=== PATIENT | female | born 1970 | race Caucasian/White ===

== ENCOUNTER 2024-12-27 00:22 | Emergency (ER) | payer MEDICARE ==
[~2024-12-27] VITALS: Ht 165.1 cm; Wt 86.0 kg
[2024-12-27 00:34] VITALS: TEMP 96.8
[2024-12-27 03:45] VITALS: BP 142/65; PULSE 67; RESP 15; O2SAT 99
[2024-12-27] MEDS: naproxen 500mg tablet PO ONE (03:57)
== END 2024-12-27 03:49 | disposition home or self-care (01) ==
LOC: ER 00:24
DX: S99.922A Unspecified injury of left foot, initial encounter (principal); W19.XXXA Unspecified fall, initial encounter; Y93.89 Activity, other specified; Y92.89 Other specified places as the place of occurrence of the external cause; Y99.8 Other external cause status
CPT/HCPCS: 73630; 99284